=== PATIENT | male | born 1970 | race Caucasian/White ===

== ENCOUNTER 2018-01-18 10:08 | Inpatient (IN) | payer MEDICARE, MEDICAID ==
[~2018-01-18] VITALS: Ht 162.6 cm; Wt 80.3 kg
[~2018-01-18 10:08] MED LIST: ACET-784 PO; ASPI-1182 PO; ATOR20TA86 PO; DSS100 PO; GLIP5 PO; PERCT10 PO
[2018-01-18 10:37] LABS: GLUCOSE,POINT OF CARE 159 MG/DL (70-110)
[2018-01-18] MEDS ORDERED: ACETAMINOPHEN 500 MG TABLET PO ONE (13:15)
[2018-01-18 13:34] LABS: BASOPHILS % (AUTO) 1.1 % (0.0-2.0); HEMATOCRIT 35.1 % (41-53); LYMPHOCYTES # (AUTO) 1.6 K/uL (1.0-4.8); LYMPHOCYTES % (AUTO) 28.4 % (22.0-44.0); MEAN CORPUSCULAR HEMOGLOBIN 28.8 pg (26.0-34.0); MEAN CORPUSCULAR HGB CONC 34.2 G/dL (31.0-37.0); MEAN CORPUSCULAR VOLUME 84 fL (80-100); MONOCYTES # (AUTO) 0.5 K/uL (0.1-1.0); MONOCYTES % (AUTO) 8.5 % (2.0-9.0); NEUTROPHILS # (AUTO) 3.2 K/uL (1.8-7.7); PLATELET COUNT (AUTO) 228 K/uL (150-450); RED BLOOD CELL COUNT(AUTO) 4.17 MIL/uL (4.50-5.90); RED CELL DISTRIBUTION WIDTH 16.6 % (11.5-14.5)
[2018-01-18 15:54] LABS: ANION GAP 3 mmol/L (8-16); CALCIUM, TOTAL 8.2 mg/dL (8.8-10.5); CARBON DIOXIDE 36 mmol/L (22-29); CHLORIDE 96 mmol/L (98-107); CREATININE 3.92 mg/dL (0.60-1.30); GLOMERULAR FILTR. RATE CALC 16 mL/min (>60); GLUCOSE,RANDOM 193 mg/dL (70-110); POTASSIUM 4.1 mmol/L (3.5-5.1); SODIUM SERUM 135 mmol/L (136-145); UREA NITROGEN, BLOOD 23 mg/dL (7-18)
[2018-01-18] MEDS ORDERED: ACETAMINOPHEN 325 MG TABLET PO PRN ×2 (16:00→16:30)
[2018-01-18] MEDS ORDERED: ONDANSETRON HCL 4 MG/2 ML VIAL IVP PRN ×2 (16:00→16:30)
[2018-01-18] MEDS ORDERED: 0.9% SODIUM CHLORIDE 10 ML SYRINGE IVP PRN (16:00)
[2018-01-18 16:08] LABS: PROTHROMBIN TIME 10.2 SEC (9.4-11.6)
[2018-01-18 16:18] LABS: ALANINE AMINOTRANSFERASE 27 U/L (12-78); ALBUMIN 3.9 g/dL (3.4-5.0); ALKALINE PHOSPHATASE 85 U/L (46-116); ASPARTATE AMINOTRANSFERASE 14 U/L (15-37); BILIRUBIN,TOTAL 0.4 mg/dL (0.1-1.0); CREATINE KINASE, TOTAL 75 U/L (39-308); TOTAL PROTEIN, SERUM 8.2 g/dL (6.4-8.2)
[2018-01-18 16:19] LABS: CREATINE KINASE MB < 0.5 ng/mL (0-5)
[2018-01-18 16:23] LABS: B-TYPE NATRIURETIC PEPTIDE 120 pg/mL (0-100)
[2018-01-18] MEDS ORDERED: ZOLPIDEM TARTRATE 5 MG TABLET PO PRN (16:30)
[2018-01-18] MEDS ORDERED: MORPHINE SULFATE 4 MG/ML SYRINGE IVP PRN (16:30)
[2018-01-18] MEDS ORDERED: MAGNESIUM HYDROXIDE SUSPENSION 30 ML UDCUP PO PRN (16:30)
[2018-01-18] MEDS ORDERED: BISACODYL 10 MG RECTAL RECTAL SUPPOSITORY PR PRN (16:30)
[2018-01-18 17:34] VITALS: BP 87/50
[2018-01-18] MEDS: GlipiZIDE 5 MG TABLET PO SCH (18:38)
[2018-01-18 18:56] VITALS: BP 101/53
[2018-01-18 19:16] VITALS: BP 85/45
[2018-01-18] MEDS: ATORVASTATIN CALCIUM 20 MG TABLET PO SCH (20:02)
[2018-01-18] MEDS: DOCUSATE SODIUM 100 MG CAPSULE PO SCH (20:02)
[2018-01-18 20:04] VITALS: BP 98/50
[2018-01-18 21:03] LABS: GLUCOMETER DEV NAME(LOC) 6N 1E; GLUCOSE,POINT OF CARE 260 MG/DL (70-110)
[2018-01-18 23:20] VITALS: BP 107/63
[2018-01-18] MEDS: HEPARIN SODIUM,PORCINE 5,000 UNITS/ML VIAL SQ SCH (23:21)
[2018-01-19 05:00] VITALS: BP 97/55
[2018-01-19] MEDS: GlipiZIDE 5 MG TABLET PO SCH ×2 (05:42→17:17)
[2018-01-19 05:53] LABS: GLUCOMETER DEV NAME(LOC) 6N 1E; GLUCOSE,POINT OF CARE 91 MG/DL (70-110)
[2018-01-19 06:58] LABS: BASOPHILS % (AUTO) 0.8 % (0.0-2.0); EOSINOPHILS % (AUTO) 4.9 % (1.0-6.0); HEMATOCRIT 33.5 % (41-53); HEMOGLOBIN 11.6 g/dL (13.5-17.5); LYMPHOCYTES # (AUTO) 1.9 K/uL (1.0-4.8); LYMPHOCYTES % (AUTO) 29.4 % (22.0-44.0); MEAN CORPUSCULAR HEMOGLOBIN 29.3 pg (26.0-34.0); MEAN CORPUSCULAR HGB CONC 34.8 G/dL (31.0-37.0); MEAN CORPUSCULAR VOLUME 84 fL (80-100); MONOCYTES # (AUTO) 0.6 K/uL (0.1-1.0); NEUTROPHILS # (AUTO) 3.6 K/uL (1.8-7.7); NEUTROPHILS % (AUTO) 55.9 % (40.0-70.0); PLATELET COUNT (AUTO) 234 K/uL (150-450); RED BLOOD CELL COUNT(AUTO) 3.98 MIL/uL (4.50-5.90); RED CELL DISTRIBUTION WIDTH 16.3 % (11.5-14.5)
[2018-01-19 07:15] LABS: CREATININE 5.23 mg/dL (0.60-1.30); POTASSIUM 3.7 mmol/L (3.5-5.1)
[2018-01-19] MEDS: DOCUSATE SODIUM 100 MG CAPSULE PO SCH ×2 (08:02→21:14)
[2018-01-19] MEDS: ASPIRIN 81 MG EC TABLET PO SCH (08:02)
[2018-01-19] MEDS: PANTOPRAZOLE SODIUM 40 MG DR TABLET PO SCH (08:02)
[2018-01-19] MEDS: ATORVASTATIN CALCIUM 20 MG TABLET PO SCH ×2 (08:02→21:13)
[2018-01-19] MEDS: HYDROCODONE/ACETAMINOPHEN 5-325 MG TABLET PO PRN (08:02)
[2018-01-19] MEDS: HEPARIN SODIUM,PORCINE 5,000 UNITS/ML VIAL SQ SCH ×2 (08:02→17:17)
[2018-01-19 08:38] VITALS: BP 91/52
[2018-01-19 12:01] VITALS: BP 94/58
[2018-01-19 16:14] VITALS: BP 96/62
[2018-01-19 19:30] VITALS: BP 98/54
[2018-01-19 23:37] VITALS: BP 91/56
[2018-01-20 03:38] LABS: GLUCOMETER DEV NAME(LOC) 6N 2D; GLUCOSE,POINT OF CARE 99 MG/DL (70-110)
[2018-01-20 04:00] VITALS: BP_SYST 103; BP_SYST 130; BP_DIAS 57; BP_DIAS 76
[2018-01-20] MEDS: GlipiZIDE 5 MG TABLET PO SCH ×2 (06:24→16:40)
[2018-01-20 06:26] LABS: BASOPHILS % (AUTO) 0.7 % (0.0-2.0); EOSINOPHILS % (AUTO) 4.5 % (1.0-6.0); HEMATOCRIT 33.5 % (41-53); HEMOGLOBIN 11.4 g/dL (13.5-17.5); LYMPHOCYTES # (AUTO) 1.9 K/uL (1.0-4.8); LYMPHOCYTES % (AUTO) 28.1 % (22.0-44.0); MEAN CORPUSCULAR HEMOGLOBIN 28.7 pg (26.0-34.0); MEAN CORPUSCULAR HGB CONC 34.1 G/dL (31.0-37.0); MEAN CORPUSCULAR VOLUME 84 fL (80-100); MONOCYTES # (AUTO) 0.7 K/uL (0.1-1.0); MONOCYTES % (AUTO) 9.9 % (2.0-9.0); NEUTROPHILS # (AUTO) 3.9 K/uL (1.8-7.7); NEUTROPHILS % (AUTO) 56.8 % (40.0-70.0); PLATELET COUNT (AUTO) 224 K/uL (150-450); RED BLOOD CELL COUNT(AUTO) 3.99 MIL/uL (4.50-5.90); RED CELL DISTRIBUTION WIDTH 16.4 % (11.5-14.5)
[2018-01-20 06:40] LABS: CALCIUM, TOTAL 8.1 mg/dL (8.8-10.5); CREATININE 5.21 mg/dL (0.60-1.30); POTASSIUM 4.1 mmol/L (3.5-5.1)
[2018-01-20 07:08] LABS: GLUCOMETER DEV NAME(LOC) 6N 1E; GLUCOSE,POINT OF CARE 110 MG/DL (70-110)
[2018-01-20 07:34] VITALS: BP 94/53
[2018-01-20] MEDS: HEPARIN SODIUM,PORCINE 5,000 UNITS/ML VIAL SQ SCH ×4 (08:00→16:00)
[2018-01-20] MEDS: ATORVASTATIN CALCIUM 20 MG TABLET PO SCH ×2 (08:40→21:10)
[2018-01-20] MEDS: ASPIRIN 81 MG EC TABLET PO SCH (08:41)
[2018-01-20] MEDS: PANTOPRAZOLE SODIUM 40 MG DR TABLET PO SCH (08:41)
[2018-01-20] MEDS: DOCUSATE SODIUM 100 MG CAPSULE PO SCH ×2 (08:41→21:10)
[2018-01-20 11:25] VITALS: BP 96/58
[2018-01-20 12:27] LABS: GLUCOMETER DEV NAME(LOC) 6N 1E; GLUCOSE,POINT OF CARE 103 MG/DL (70-110)
[2018-01-20] MEDS ORDERED: SODIUM CHLORIDE 0.9% 1,000 ML IV ONE ×2 (15:19)
[2018-01-20 16:49] VITALS: BP 107/59
[2018-01-20 19:33] VITALS: BP 133/68
[2018-01-20 23:43] LABS: GLUCOMETER DEV NAME(LOC) 6N 1E; GLUCOSE,POINT OF CARE 200 MG/DL (70-110)
[2018-01-20 23:55] VITALS: BP 91/53
[2018-01-21 04:35] VITALS: BP 94/54
[2018-01-21] MEDS: GlipiZIDE 5 MG TABLET PO SCH (06:22)
[2018-01-21 06:37] LABS: BASOPHILS % (AUTO) 1.1 % (0.0-2.0); EOSINOPHILS % (AUTO) 5.1 % (1.0-6.0); HEMATOCRIT 32.5 % (41-53); HEMOGLOBIN 11.2 g/dL (13.5-17.5); LYMPHOCYTES # (AUTO) 1.5 K/uL (1.0-4.8); LYMPHOCYTES % (AUTO) 27.2 % (22.0-44.0); MEAN CORPUSCULAR HEMOGLOBIN 28.8 pg (26.0-34.0); MEAN CORPUSCULAR HGB CONC 34.4 G/dL (31.0-37.0); MEAN CORPUSCULAR VOLUME 84 fL (80-100); MONOCYTES # (AUTO) 0.6 K/uL (0.1-1.0); MONOCYTES % (AUTO) 10.3 % (2.0-9.0); NEUTROPHILS # (AUTO) 3.2 K/uL (1.8-7.7); NEUTROPHILS % (AUTO) 56.3 % (40.0-70.0); PLATELET COUNT (AUTO) 210 K/uL (150-450); RED BLOOD CELL COUNT(AUTO) 3.88 MIL/uL (4.50-5.90)
[2018-01-21 06:37] LABS: GLUCOMETER DEV NAME(LOC) 6N 1E; GLUCOSE,POINT OF CARE 134 MG/DL (70-110)
[2018-01-21 07:01] LABS: CALCIUM, TOTAL 7.9 mg/dL (8.8-10.5); CREATININE 3.82 mg/dL (0.60-1.30); POTASSIUM 3.8 mmol/L (3.5-5.1)
[2018-01-21 07:57] VITALS: BP 123/66
[2018-01-21] MEDS: DOCUSATE SODIUM 100 MG CAPSULE PO SCH (08:21)
[2018-01-21] MEDS: HEPARIN SODIUM,PORCINE 5,000 UNITS/ML VIAL SQ SCH ×2 (08:21)
[2018-01-21] MEDS: HYDROCODONE/ACETAMINOPHEN 5-325 MG TABLET PO PRN (08:22)
[2018-01-21] MEDS: ASPIRIN 81 MG EC TABLET PO SCH (08:22)
[2018-01-21] MEDS: PANTOPRAZOLE SODIUM 40 MG DR TABLET PO SCH (08:22)
[2018-01-21] MEDS: ATORVASTATIN CALCIUM 20 MG TABLET PO SCH (08:22)
[2018-01-21] MEDS ORDERED: CLOPIDOGREL BISULFATE 75 MG TABLET PO SCH (09:00)
[2018-01-21] MEDS ORDERED: CLOP75 PO (11:18)
[2018-01-21 12:27] VITALS: BP 102/57
[2018-01-21 19:43] LABS: GLUCOMETER DEV NAME(LOC) 6N 1E; GLUCOSE,POINT OF CARE 91 MG/DL (70-110)
== END 2018-01-21 12:25 | disposition home or self-care (01) | DRG 299 ==
LOC: EMS 10:12 → 6N 15:43
PROVIDERS: ADMIT Internal Medicine; ATTEND Internal Medicine
PROC: 5A1D70Z Performance of Urinary Filtration, Intermittent, Less than 6 Hours Per Day (ICD-10-PCS; principal; 2018-01-20)
DX: E11.51 Type 2 diabetes mellitus with diabetic peripheral angiopathy without gangrene (principal); N18.6 End stage renal disease; I12.0 Hypertensive chronic kidney disease with stage 5 chronic kidney disease or end stage renal disease; D64.9 Anemia, unspecified; I70.201 Unspecified atherosclerosis of native arteries of extremities, right leg; E11.21 Type 2 diabetes mellitus with diabetic nephropathy; D63.1 Anemia in chronic kidney disease; E11.22 Type 2 diabetes mellitus with diabetic chronic kidney disease; E78.5 Hyperlipidemia, unspecified; Z79.82 Long term (current) use of aspirin; Z99.2 Dependence on renal dialysis; Z72.0 Tobacco use
CPT/HCPCS: 87081; 87340; 93005; 93925; 93971; 99285; J1644; J7030

== ENCOUNTER 2018-05-24 05:45 | Inpatient (IN) | payer MEDICARE ==
[~2018-05-24] VITALS: Ht 162.6 cm; Wt 84.8 kg
[2018-05-24] VITALS (12 sets, daily range): BP systolic 90–113; BP diastolic 53–72
[~2018-05-24 05:45] MED LIST changes: -ASPI-1182 PO; -ATOR20TA86 PO; +ATOR40TA28 PO; +CLOP75 PO; -DSS100 PO; +FENO54TA5 PO; +PHOSLOC PO
[2018-05-24] MEDS ORDERED: SODIUM CHLORIDE 0.9% 1,000 ML IV ONE ×8 (06:00→19:24)
[2018-05-24] MEDS ORDERED: CeFAZolin 2 GM/DEXTROSE 50 ML IV ONE ×2 (06:30→07:00)
[2018-05-24 06:49] LABS: BASOPHILS % (AUTO) 0.4 % (0.0-2.0); EOSINOPHILS % (AUTO) 4.8 % (1.0-6.0); HEMATOCRIT 31.9 % (41-53); HEMOGLOBIN 10.8 g/dL (13.5-17.5); LYMPHOCYTES # (AUTO) 1.3 K/uL (1.0-4.8); LYMPHOCYTES % (AUTO) 17.1 % (22.0-44.0); MEAN CORPUSCULAR HEMOGLOBIN 29.5 pg (26.0-34.0); MEAN CORPUSCULAR HGB CONC 33.7 G/dL (31.0-37.0); MEAN CORPUSCULAR VOLUME 88 fL (80-100); MONOCYTES # (AUTO) 0.8 K/uL (0.1-1.0); MONOCYTES % (AUTO) 10.8 % (2.0-9.0); NEUTROPHILS # (AUTO) 4.9 K/uL (1.8-7.7); NEUTROPHILS % (AUTO) 66.9 % (40.0-70.0); PLATELET COUNT (AUTO) 189 K/uL (150-450); RED BLOOD CELL COUNT(AUTO) 3.64 MIL/uL (4.50-5.90); RED CELL DISTRIBUTION WIDTH 17.1 % (11.5-14.5)
[2018-05-24] MEDS ORDERED: MINERAL OIL 10 ML VIAL TP ONE (06:50)
[2018-05-24] MEDS ORDERED: BUPIVACAINE HCL/PF 0.5% 30 ML VIAL ONE ×4 (06:50→16:54)
[2018-05-24] MEDS ORDERED: SODIUM CHLORIDE 0.9% 10 ML ONE ×2 (06:51→17:27)
[2018-05-24] MEDS ORDERED: HEPARIN SODIUM,PORCINE 5,000 UNITS/ML VIAL ONE (06:52)
[2018-05-24] MEDS ORDERED: SODIUM CHLORIDE 0.9% 0 ML IV ONE (06:52)
[2018-05-24] MEDS ORDERED: ACETAMINOPHEN 1000 MG/ISO-OSM 0 ML IV ONE (06:56)
[2018-05-24 06:58] LABS: CALCIUM, TOTAL 7.9 mg/dL (8.8-10.5); CREATININE 8.29 mg/dL (0.60-1.30); POTASSIUM 4.1 mmol/L (3.5-5.1)
[2018-05-24 07:04] LABS: ALBUMIN 3.1 g/dL (3.4-5.0); BILIRUBIN,TOTAL 0.3 mg/dL (0.1-1.0)
[2018-05-24 07:16] LABS: INR 0.9 (0.9-1.1); PROTHROMBIN TIME 9.8 SEC (9.4-11.6)
[2018-05-24] MEDS ORDERED: ALTEPLASE 2 MG/VIAL IVCATH ONE ×2 (07:30→18:30)
[2018-05-24] MEDS ORDERED: FentaNYL CITRATE-PF 100 MCG/2 ML VIAL IVP PRN (08:45)
[2018-05-24] MEDS ORDERED: BUPIVACAINE LIPOSOME/PF 1.3%-13.3MG/ML SUSPENSION 20 ML VIAL INJ ONE (08:45)
[2018-05-24] MEDS ORDERED: MEPERIDINE HCL/PF 25 MG/0.5 ML AMP IVP PRN (08:45)
[2018-05-24] MEDS ORDERED: OxyCODONE HCL/ACETAMINOPHEN 10-325 MG TABLET PO PRN ×2 (08:45→18:15)
[2018-05-24] MEDS ORDERED: HYDROmorphone 2 MG/ML SYRINGE IVP PRN ×3 (08:45→18:15)
[2018-05-24] MEDS ORDERED: NITROGLYCERIN 0.4 MG SUBLINGUAL TABLET #25 SL PRN (11:30)
[2018-05-24] MEDS ORDERED: ONDANSETRON HCL 4 MG/2 ML VIAL IVP PRN (11:30)
[2018-05-24] MEDS ORDERED: GLUCAGON,HUMAN RECOMBINANT 1 MG VIAL IM PRN (11:30)
[2018-05-24] MEDS ORDERED: HEPARIN SODIUM 25000 UNITS/D5W 250 ML IV SCH ×2 (11:30→12:15)
[2018-05-24] MEDS ORDERED: MEPERIDINE HCL/PF 25 MG/0.5 ML AMP ONE (11:46)
[2018-05-24] MEDS ORDERED: FentaNYL CITRATE-PF 100 MCG/2 ML VIAL ONE (11:53)
[2018-05-24] MEDS ORDERED: DEXTROSE 50%-WATER 25 GM/50 ML SYRINGE IVP PRN (12:15)
[2018-05-24 13:58] LABS: HEMATOCRIT 29.5 % (41-53); HEMOGLOBIN 9.9 g/dL (13.5-17.5)
[2018-05-24] MEDS: ACETAMINOPHEN 1000 MG/ISO-OSM 100 ML IV SCH ×3 (14:00→20:12)
[2018-05-24] MEDS: CLOPIDOGREL BISULFATE 75 MG TABLET PO SCH (15:19)
[2018-05-24] MEDS ORDERED: SODIUM CHLORIDE 0.9% 500 ML IV ONE (15:45)
[2018-05-24] MEDS ORDERED: HEPARIN SODIUM,PORCINE 5,000 UNITS/ML VIAL IVP ONE (15:45)
[2018-05-24] MEDS: DOCUSATE SODIUM 100 MG CAPSULE PO SCH ×2 (16:00→22:28)
[2018-05-24] MEDS: VITAMIN B COMP/VIT C/FOLIC ACID CAPSULE PO SCH (16:00)
[2018-05-24] MEDS ORDERED: ACETAMINOPHEN 1000 MG/ISO-OSM 100 ML IV ONE ×2 (16:54→20:11)
[2018-05-24] MEDS ORDERED: PROPOFOL 1000 MG/ISO-OSM 100 ML IV ONE (16:59)
[2018-05-24] MEDS ORDERED: LIDOCAINE/PF 2% 5 ML VIAL ONE (17:15)
[2018-05-24] MEDS ORDERED: HEPARIN SODIUM 1000 UNITS/NS 500 ML ONE (17:27)
[2018-05-24] MEDS ORDERED: GELATIN SPONGE,ABSORBABLE 100 MM TP ONE (17:27)
[2018-05-24] MEDS ORDERED: THROMBIN, BOVINE 20000 UNITS/VIAL POWDER TP ONE (17:28)
[2018-05-24] MEDS ORDERED: LIDOCAINE/PF 1% 30 ML VIAL ONE (17:53)
[2018-05-24] MEDS ORDERED: HEPARIN SODIUM 25000 UNITS/D5W 250 ML IV PRN (18:06)
[2018-05-24] MEDS ORDERED: HEPARIN SODIUM,PORCINE 5,000 UNITS/ML VIAL IVP PRN ×2 (18:15)
[2018-05-24] MEDS ORDERED: VANCOMYCIN HCL 1 GM/VIAL ONE (19:36)
[2018-05-24] MEDS ORDERED: BACITRACIN 28.4 GM OINTMENT TP ONE (19:43)
[2018-05-24] MEDS ORDERED: CeFAZolin 1 GM/DEXTROSE 50 ML IV ONE (20:03)
[2018-05-24] MEDS: CeFAZolin SODIUM 1 GM in DEXTROSE 5%-WATER 10 ML IV SCH (20:11)
[2018-05-24 22:09] LABS: MEAN CORPUSCULAR HEMOGLOBIN 29.2 pg (26.0-34.0); MEAN CORPUSCULAR HGB CONC 33.3 G/dL (31.0-37.0); MEAN CORPUSCULAR VOLUME 88 fL (80-100); PLATELET COUNT (AUTO) 172 K/uL (150-450); RED BLOOD CELL COUNT(AUTO) 3.41 MIL/uL (4.50-5.90); RED CELL DISTRIBUTION WIDTH 16.7 % (11.5-14.5)
[2018-05-24 22:25] LABS: PROTHROMBIN TIME 10.5 SEC (9.4-11.6)
[2018-05-24] MEDS: OxyCODONE HCL/ACETAMINOPHEN 10-325 MG TABLET PO PRN (22:31)
[2018-05-24 23:29] LABS: BAND NEUTROPHILS % (MANUAL) 10 % (0-5); LYMPHOCYTES % (MANUAL) 7 % (22-44); MONOCYTES % (MANUAL) 3 % (2-9); SEGMENTED NEUTROPHILS % 80 % (40-70)
[2018-05-25] MEDS ORDERED: SODIUM CHLORIDE 0.9% 250 ML IV ONE (01:51)
[2018-05-25] MEDS: ACETAMINOPHEN 1000 MG/ISO-OSM 100 ML IV SCH ×2 (02:11→08:00)
[2018-05-25 03:58] VITALS: BP 104/55
[2018-05-25] MEDS: CeFAZolin SODIUM 1 GM in DEXTROSE 5%-WATER 10 ML IV SCH ×2 (04:37→14:45)
[2018-05-25] MEDS ORDERED: DEXAMETHASONE SOD PHOS 4 MG/ML VIAL IVP ONE (05:04)
[2018-05-25] MEDS ORDERED: MIDAZOLAM HCL 2 MG/2 ML VIAL IVP ONE ×2 (05:04→05:15)
[2018-05-25] MEDS ORDERED: HEPARIN SODIUM,PORCINE 1,000 UNITS/ML 10 ML VIAL IVP ONE (05:04)
[2018-05-25] MEDS ORDERED: PROPOFOL 1% 20 ML VIAL IVP ONE (05:04)
[2018-05-25] MEDS ORDERED: LIDOCAINE/PF 2% 5 ML VIAL IM ONE (05:04)
[2018-05-25] MEDS ORDERED: EPHEDrine SULFATE 50 MG/ML VIAL IM ONE (05:04)
[2018-05-25 05:15] LABS: BASOPHILS % (AUTO) 0.1 % (0.0-2.0); EOSINOPHILS % (AUTO) 0.1 % (1.0-6.0); HEMATOCRIT 26.2 % (41-53); HEMOGLOBIN 8.8 g/dL (13.5-17.5); LYMPHOCYTES # (AUTO) 1.1 K/uL (1.0-4.8); LYMPHOCYTES % (AUTO) 9.1 % (22.0-44.0); MEAN CORPUSCULAR HEMOGLOBIN 29.2 pg (26.0-34.0); MEAN CORPUSCULAR HGB CONC 33.6 G/dL (31.0-37.0); MEAN CORPUSCULAR VOLUME 87 fL (80-100); MONOCYTES # (AUTO) 0.8 K/uL (0.1-1.0); MONOCYTES % (AUTO) 6.8 % (2.0-9.0); NEUTROPHILS # (AUTO) 9.8 K/uL (1.8-7.7); NEUTROPHILS % (AUTO) 83.9 % (40.0-70.0); PLATELET COUNT (AUTO) 176 K/uL (150-450); RED BLOOD CELL COUNT(AUTO) 3.01 MIL/uL (4.50-5.90); RED CELL DISTRIBUTION WIDTH 16.5 % (11.5-14.5)
[2018-05-25 06:01] LABS: ALBUMIN 2.3 g/dL (3.4-5.0); BILIRUBIN,TOTAL 0.3 mg/dL (0.1-1.0); CALCIUM, TOTAL 6.8 mg/dL (8.8-10.5); CREATININE 7.71 mg/dL (0.60-1.30); MAGNESIUM 1.9 mg/dL (1.80-2.40); PHOSPHORUS 6.1 mg/dL (2.5-4.9); POTASSIUM 5.5 mmol/L (3.5-5.1); TOTAL PROTEIN, SERUM 5.8 g/dL (6.4-8.2)
[2018-05-25] MEDS: INSULIN LISPRO 100 UNITS/ML SQ PRN ×2 (06:09→22:14)
[2018-05-25 09:00] LABS: PROTHROMBIN TIME 10.7 SEC (9.4-11.6)
[2018-05-25] MEDS ORDERED: ATORVASTATIN CALCIUM 20 MG TABLET PO SCH (09:00)
[2018-05-25] MEDS: DOCUSATE SODIUM 100 MG CAPSULE PO SCH ×3 (09:29→20:22)
[2018-05-25] MEDS: OxyCODONE HCL/ACETAMINOPHEN 10-325 MG TABLET PO PRN ×2 (09:31→22:08)
[2018-05-25 09:34] VITALS: BP 128/69
[2018-05-25 11:38] VITALS: BP 119/79
[2018-05-25] MEDS: FENOFIBRATE 160 MG TABLET PO SCH (14:42)
[2018-05-25] MEDS: CLOPIDOGREL BISULFATE 75 MG TABLET PO SCH (14:42)
[2018-05-25] MEDS: VITAMIN B COMP/VIT C/FOLIC ACID CAPSULE PO SCH (14:42)
[2018-05-25] MEDS: EPOETIN ALFA 10,000 UNITS/ML VIAL SQ SCH (14:43)
[2018-05-25] MEDS ORDERED: SODIUM CHLORIDE 0.9% 500 ML IV ONE (14:47)
[2018-05-25] MEDS ORDERED: OxyCODONE HCL/ACETAMINOPHEN 10-325 MG TABLET PO PRN (15:15)
[2018-05-25 15:55] VITALS: BP 106/59
[2018-05-25 19:44] VITALS: BP 108/58
[2018-05-25 23:58] VITALS: BP 109/57
[2018-05-26] VITALS (22 sets, daily range): BP systolic 84–121; BP diastolic 46–63
[2018-05-26 06:00] LABS: GLUCOMETER DEV NAME(LOC) 5N 2S; GLUCOSE,POINT OF CARE 160 MG/DL (70-110)
[2018-05-26 06:00] LABS: GLUCOMETER DEV NAME(LOC) 5N 2S; GLUCOSE,POINT OF CARE 257 MG/DL (70-110)
[2018-05-26 06:00] LABS: GLUCOMETER DEV NAME(LOC) 5N 2S; GLUCOSE,POINT OF CARE 231 MG/DL (70-110)
[2018-05-26 06:00] LABS: GLUCOMETER DEV NAME(LOC) 5S 1M; GLUCOSE,POINT OF CARE 279 MG/DL (70-110)
[2018-05-26] MEDS: INSULIN LISPRO 100 UNITS/ML SQ PRN (06:37)
[2018-05-26 07:20] LABS: BASOPHILS % (AUTO) 0.2 % (0.0-2.0); EOSINOPHILS % (AUTO) 0.8 % (1.0-6.0); LYMPHOCYTES % (AUTO) 15.4 % (22.0-44.0); MEAN CORPUSCULAR HEMOGLOBIN 29.9 pg (26.0-34.0); MEAN CORPUSCULAR HGB CONC 34.9 G/dL (31.0-37.0); MEAN CORPUSCULAR VOLUME 86 fL (80-100); MONOCYTES # (AUTO) 0.7 K/uL (0.1-1.0); MONOCYTES % (AUTO) 11.9 % (2.0-9.0); NEUTROPHILS # (AUTO) 4.5 K/uL (1.8-7.7); NEUTROPHILS % (AUTO) 71.7 % (40.0-70.0); PLATELET COUNT (AUTO) 157 K/uL (150-450); RED BLOOD CELL COUNT(AUTO) 2.22 MIL/uL (4.50-5.90); RED CELL DISTRIBUTION WIDTH 16.5 % (11.5-14.5)
[2018-05-26 07:34] LABS: HEMOGLOBIN 6.6 g/dL (13.5-17.5)
[2018-05-26 07:53] LABS: CREATININE 5.8 mg/dL (0.60-1.30); MAGNESIUM 1.7 mg/dL (1.80-2.40); POTASSIUM 4.2 mmol/L (3.5-5.1)
[2018-05-26] MEDS: ATORVASTATIN CALCIUM 40 MG TABLET PO SCH (08:26)
[2018-05-26] MEDS: FENOFIBRATE 160 MG TABLET PO SCH (08:26)
[2018-05-26] MEDS: CLOPIDOGREL BISULFATE 75 MG TABLET PO SCH (08:29)
[2018-05-26] MEDS: VITAMIN B COMP/VIT C/FOLIC ACID CAPSULE PO SCH (08:29)
[2018-05-26] MEDS: OxyCODONE HCL/ACETAMINOPHEN 10-325 MG TABLET PO PRN ×3 (08:29→20:49)
[2018-05-26] MEDS: DOCUSATE SODIUM 100 MG CAPSULE PO SCH ×3 (08:30→20:53)
[2018-05-26] MEDS ORDERED: LACTULOSE 20 GM/30 ML SOLUTION UDCUP PO ONE (08:30)
[2018-05-26] MEDS ORDERED: CLOPIDOGREL BISULFATE 75 MG TABLET PO SCH (09:00)
[2018-05-26] MEDS ORDERED: SODIUM CHLORIDE 0.9% 1,000 ML IV ONE ×2 (09:21→15:41)
[2018-05-26] MEDS ORDERED: PANTOPRAZOLE SODIUM 40 MG DR TABLET PO PRN (10:45)
[2018-05-26] MEDS ORDERED: MANNITOL 25%-12.5 GM/50 ML VIAL IVP ONE (12:00)
[2018-05-26] MEDS ORDERED: SODIUM CHLORIDE 0.9% 250 ML IV ONE (14:11)
[2018-05-26 16:49] LABS: GLUCOMETER DEV NAME(LOC) 5N 1P; GLUCOSE,POINT OF CARE 216 MG/DL (70-110)
[2018-05-26 16:49] LABS: GLUCOMETER DEV NAME(LOC) 5N 1P; GLUCOSE,POINT OF CARE 173 MG/DL (70-110)
[2018-05-26 16:50] LABS: GLUCOMETER DEV NAME(LOC) 5S 2Q; GLUCOSE,POINT OF CARE 181 MG/DL (70-110)
[2018-05-26 21:32] LABS: BASOPHILS % (AUTO) 0.4 % (0.0-2.0); HEMOGLOBIN 8.4 g/dL (13.5-17.5); LYMPHOCYTES # (AUTO) 1.5 K/uL (1.0-4.8); MEAN CORPUSCULAR HEMOGLOBIN 29.6 pg (26.0-34.0); MEAN CORPUSCULAR HGB CONC 35.2 G/dL (31.0-37.0); MEAN CORPUSCULAR VOLUME 84 fL (80-100); MONOCYTES % (AUTO) 14.7 % (2.0-9.0); NEUTROPHILS # (AUTO) 4.3 K/uL (1.8-7.7); NEUTROPHILS % (AUTO) 60.9 % (40.0-70.0); PLATELET COUNT (AUTO) 132 K/uL (150-450); RED BLOOD CELL COUNT(AUTO) 2.85 MIL/uL (4.50-5.90); RED CELL DISTRIBUTION WIDTH 15.3 % (11.5-14.5)
[2018-05-27 00:41] VITALS: BP 100/53
[2018-05-27] MEDS: OxyCODONE HCL/ACETAMINOPHEN 10-325 MG TABLET PO PRN ×2 (01:18→08:02)
[2018-05-27 04:59] VITALS: BP 95/52
[2018-05-27 06:41] LABS: BASOPHILS % (AUTO) 0.4 % (0.0-2.0); HEMOGLOBIN 8.9 g/dL (13.5-17.5); LYMPHOCYTES # (AUTO) 1.5 K/uL (1.0-4.8); LYMPHOCYTES % (AUTO) 22.1 % (22.0-44.0); MEAN CORPUSCULAR HEMOGLOBIN 30.2 pg (26.0-34.0); MEAN CORPUSCULAR HGB CONC 35.5 G/dL (31.0-37.0); MEAN CORPUSCULAR VOLUME 85 fL (80-100); MONOCYTES # (AUTO) 0.8 K/uL (0.1-1.0); MONOCYTES % (AUTO) 12.7 % (2.0-9.0); NEUTROPHILS # (AUTO) 4.1 K/uL (1.8-7.7); NEUTROPHILS % (AUTO) 60.8 % (40.0-70.0); PLATELET COUNT (AUTO) 137 K/uL (150-450); RED BLOOD CELL COUNT(AUTO) 2.95 MIL/uL (4.50-5.90); RED CELL DISTRIBUTION WIDTH 15.4 % (11.5-14.5)
[2018-05-27 06:51] LABS: CALCIUM, TOTAL 7.6 mg/dL (8.8-10.5); CREATININE 3.24 mg/dL (0.60-1.30); MAGNESIUM 1.6 mg/dL (1.80-2.40); PHOSPHORUS 3.4 mg/dL (2.5-4.9); POTASSIUM 4.3 mmol/L (3.5-5.1)
[2018-05-27 07:37] VITALS: BP 97/55
[2018-05-27] MEDS: FENOFIBRATE 160 MG TABLET PO SCH (08:01)
[2018-05-27] MEDS: ATORVASTATIN CALCIUM 40 MG TABLET PO SCH (08:01)
[2018-05-27] MEDS: VITAMIN B COMP/VIT C/FOLIC ACID CAPSULE PO SCH (08:01)
[2018-05-27] MEDS: EPOETIN ALFA 10,000 UNITS/ML VIAL SQ SCH (08:02)
[2018-05-27] MEDS: DOCUSATE SODIUM 100 MG CAPSULE PO SCH (08:02)
[2018-05-27] MEDS: CLOPIDOGREL BISULFATE 75 MG TABLET PO SCH (08:03)
[2018-05-27 11:52] VITALS: BP 105/58
[2018-05-27 12:20] LABS: GLUCOMETER DEV NAME(LOC) 5N 1P; GLUCOSE,POINT OF CARE 128 MG/DL (70-110)
[2018-05-27] MEDS ORDERED: PERCT PO (13:59)
[2018-05-29 20:34] LABS: GLUCOMETER DEV NAME(LOC) 5S 1M; GLUCOSE,POINT OF CARE 119 MG/DL (70-110)
[2018-05-29 20:34] LABS: GLUCOMETER DEV NAME(LOC) 5S 1M; GLUCOSE,POINT OF CARE 115 MG/DL (70-110)
[2018-05-29 20:35] LABS: GLUCOMETER DEV NAME(LOC) 5S 1M; GLUCOSE,POINT OF CARE 110 MG/DL (70-110)
== END 2018-05-27 14:45 | disposition home or self-care (01) | DRG 270 ==
LOC: 5S 05:45
PROVIDERS: ADMIT Radiology Vascular & Interventional Radiology; ATTEND Radiology Vascular & Interventional Radiology
PROC: 04CD0ZZ Extirpation of Matter from Left Common Iliac Artery, Open Approach (ICD-10-PCS; 2018-05-24)
PROC: 04UL07Z Supplement Left Femoral Artery with Autologous Tissue Substitute, Open Approach (ICD-10-PCS; 2018-05-24)
PROC: 30233N1 Transfusion of Nonautologous Red Blood Cells into Peripheral Vein, Percutaneous Approach (ICD-10-PCS; 2018-05-24)
PROC: 3E0T3BZ Introduction of Anesthetic Agent into Peripheral Nerves and Plexi, Percutaneous Approach (ICD-10-PCS; 2018-05-24)
PROC: 04U Lower Arteries, Supplement (ICD-10-PCS; 2018-05-24)
PROC: 041K0JH Bypass Right Femoral Artery to Right Femoral Artery with Synthetic Substitute, Open Approach (ICD-10-PCS; 2018-05-24)
PROC: 04CK0ZZ Extirpation of Matter from Right Femoral Artery, Open Approach (ICD-10-PCS; 2018-05-24)
PROC: 047K3ZZ Dilation of Right Femoral Artery, Percutaneous Approach (ICD-10-PCS; 2018-05-24)
PROC: 3E05317 Introduction of Other Thrombolytic into Peripheral Artery, Percutaneous Approach (ICD-10-PCS; 2018-05-24)
PROC: 041K0ZH Bypass Right Femoral Artery to Right Femoral Artery, Open Approach (ICD-10-PCS; 2018-05-24)
PROC: 04CL0ZZ Extirpation of Matter from Left Femoral Artery, Open Approach (ICD-10-PCS; principal; 2018-05-24 07:30)
PROC: 5A1D70Z Performance of Urinary Filtration, Intermittent, Less than 6 Hours Per Day (ICD-10-PCS; 2018-05-25)
PROC: 5A1D70Z Performance of Urinary Filtration, Intermittent, Less than 6 Hours Per Day (ICD-10-PCS; 2018-05-26)
DX: I70.223 Atherosclerosis of native arteries of extremities with rest pain, bilateral legs (principal); N18.6 End stage renal disease; D64.9 Anemia, unspecified; E11.22 Type 2 diabetes mellitus with diabetic chronic kidney disease; E11.51 Type 2 diabetes mellitus with diabetic peripheral angiopathy without gangrene; E78.00 Pure hypercholesterolemia, unspecified; E78.5 Hyperlipidemia, unspecified; E11.42 Type 2 diabetes mellitus with diabetic polyneuropathy; E87.5 Hyperkalemia; I50.9 Heart failure, unspecified; G47.33 Obstructive sleep apnea (adult) (pediatric); K21.9 Gastro-esophageal reflux disease without esophagitis; K59.00 Constipation, unspecified; Z79.02 Long term (current) use of antithrombotics/antiplatelets; Z83.3 Family history of diabetes mellitus; Z99.2 Dependence on renal dialysis; Z79.84 Long term (current) use of oral hypoglycemic drugs; Z79.899 Other long term (current) drug therapy; Z82.49 Family history of ischemic heart disease and other diseases of the circulatory system
CPT/HCPCS: 36245; 75710; 75962; 83540; 83550; 83735; 84100; 85014; 85018; 86850; 86900; 86901; 86920; 87081; 87340; 88304; 93005; C9290; J0131; J0690; J0885; J1100; J1170; J1644; J2150; J2250; J2704; J2997; J3010; J3370; J3490; J7030; J7040; J7050; J7060; P9016

== ENCOUNTER → 2019-10-12 | Outpatient (CLI) | payer MEDICARE ==
[~2019-10-12] MED LIST changes: -CLOP75 PO; +CLOP75TA3 PO; -FENO54TA5 PO; +FENO54TA7 PO; +OXYC-601 PO; +PERCT PO; -PERCT10 PO
[2019-10-12 11:12] LABS: BASOPHILS % (AUTO) 0.4 % (0.0-2.0); HEMOGLOBIN 13.5 g/dL (13.5-17.5); MEAN CORPUSCULAR HEMOGLOBIN 29.3 pg (26.0-34.0)
[2019-10-12 11:24] LABS: EOSINOPHILS % (AUTO) 5.6 % (1.0-6.0); HEMATOCRIT 41.8 % (41-53); LYMPHOCYTES # (AUTO) 1.8 K/uL (1.0-4.8); LYMPHOCYTES % (AUTO) 15.3 % (22.0-44.0); MEAN CORPUSCULAR HGB CONC 32.3 G/dL (31.0-37.0); MEAN CORPUSCULAR VOLUME 91 fL (80-100); MONOCYTES % (AUTO) 8.5 % (2.0-9.0); NEUTROPHILS # (AUTO) 8.1 K/uL (1.8-7.7); NEUTROPHILS % (AUTO) 70.2 % (40.0-70.0); PLATELET COUNT (AUTO) 260 K/uL (150-450); RED BLOOD CELL COUNT(AUTO) 4.61 MIL/uL (4.50-5.90)
[2019-10-12 11:40] LABS: HEMOGLOBIN A1C 8.4 % (3.8-5.6)
[2019-10-12 12:01] LABS: ALBUMIN 4.1 g/dL (3.4-5.0); BILIRUBIN,TOTAL 0.7 mg/dL (0.1-1.0); CALCIUM, TOTAL 10.3 mg/dL (8.8-10.5); CHOL/HDL RATIO 5.8 (4.2-7.3); CREATININE 4.8 mg/dL (0.60-1.30); FREE T4 (FREE THYROXINE) 1.46 ng/dL (0.76-1.46); MAGNESIUM 2.1 mg/dL (1.80-2.40); POTASSIUM 4.6 mmol/L (3.5-5.1); THYROID STIMULATING HORMONE 2.52 uIU/mL (0.36-3.74); TOTAL PROTEIN, SERUM 9.4 g/dL (6.4-8.2)
== END | disposition home or self-care (01) ==
LOC: LABPV 09:01
PROVIDERS: ATTEND Internal Medicine Cardiovascular Disease
DX: I11.0 Hypertensive heart disease with heart failure (principal); I50.9 Heart failure, unspecified; E11.8 Type 2 diabetes mellitus with unspecified complications; E55.9 Vitamin D deficiency, unspecified; D56.5 Hemoglobin E-beta thalassemia
CPT/HCPCS: 82306; 83036; 83735; 84439; 84443